=== PATIENT | male | born 1945 | race Caucasian/White ===

== ENCOUNTER 2017-08-10 22:01 | Emergency (ER) | payer OTHER ==
[~2017-08-10] VITALS: Ht 182.9 cm; Wt 89.8 kg
[~2017-08-10 22:01] MED LIST: ALBU0.08 INH; ALBUAER2 INH; AZIT-57 PO; LISI20TA3 PO; SPRIN INH
[2017-08-10 22:06] VITALS: TEMP 37.1; Ht 182.9 cm; Wt 89.8 kg
[2017-08-10] MEDS ORDERED: ADVIN50/60 INH (22:57)
[2017-08-10] MEDS ORDERED: LISI-788 PO (22:57)
[2017-08-10] MEDS ORDERED: VNTHFA/IN INH (22:57)
[2017-08-10] MEDS ORDERED: ALBINS/ INH (22:57)
[2017-08-10] MEDS ORDERED: ASPI81TA28 PO (22:57)
[2017-08-10] MEDS ORDERED: ATOR-22 PO (22:58)
[2017-08-10] MEDS ORDERED: ACET-1311 PO (23:00)
--- NOTE | 2017-08-10 23:14 | DIAGNOSTIC IMAGING REPORT ---
L KNEE 3 VIEWS CLINICAL HISTORY: 71 years-old Male presenting with left knee pain - medial/superior, climbing out of window. TECHNIQUE: Frontal, lateral, and sunrise views of the left knee were obtained. COMPARISON: None. FINDINGS: No acute fracture or malalignment. Tricompartmental degenerative changes most severe in the medial compartment, where there is medial joint space loss and subchondral sclerosis. Diffuse osteophytosis. A linear sclerotic line in the lateral tibial plateau likely relates to degenerative changes at the proximal tibiofibular articulation rather than medullary changes. No patellar subluxation. Moderate joint effusion. Atherosclerosis. IMPRESSION: Tricompartmental degenerative changes. No acute osseous injury. Electronically signed by: Anthony Doty M.D. 08/10/2017 11:13 PM Dictated Date/Time: 08/10/2017 11:11 PM
--- NOTE | 2017-08-10 23:32 | EMERGENCY ROOM VISIT NOTE ---
ED Visit Note First contact with patient: 22:28 The patient was seen and examined with Renetta David PA-C. I agree with the history, physical and findings. Please see the note for disposition and details.
--- NOTE | 2017-08-10 23:37 | EMERGENCY ROOM VISIT NOTE ---
ED Visit Note First contact with patient: 22:28 CHIEF COMPLAINT: Left knee pain HISTORY OF PRESENT ILLNESS: This 71 year old male patient presents to the emergency department approximately 10 hours after sustaining an injury to the left knee while climbing out of the basement window. He states he does not have stairs into his basement, and as he was climbing out of the window, he rolled his knee on the window frame. The patient states he immediately experienced pain , however, continued to work, unloading a furnace from a truck. He then jumped out of the back of the truck, which seemed to worsen the pain. The patient denies any other injuries besides their knee. The patient does report swelling or bruising. There is pain in the superior/medial aspect. They rate the pain as sharp and 5/10. The patient states they are able to walk on it with the help of a cane. The patient tried Tylenol, Ice, heat, Bengay, and an JUICE wrap which did help somewhat. No numbness or tingling. No previous injuries to this knee. No ankle, foot or hip pain. REVIEW OF SYSTEMS: A 6 system review of systems was completed with positives and pertinent negatives listed in the HPI. ALLERGIES: None MEDICATIONS: Spiriva, lisinopril, albuterol PMH: Hypertension, diabetes, COPD SOCIAL HISTORY: The patient lives locally with family. He denies drug, alcohol use. He admits to using chewing tobacco. PHYSICAL EXAM: Vital Signs: Reviewed Nurse's notes, vital signs stable. GENERAL : This is a 71-year-old white male, no acute distress, but appears in pain, well -developed, well-nourished. MENTAL STATUS: Alert, oriented to person place and time, and cooperative. MUSCULOSKELETAL: The left knee is moderately swollen. There is no ecchymosis. There is joint effusion present. The patient is tender just superior to the patella, worse on the medial aspect. There is no joint line tenderness. The patella does appropriately subluxate. Range of motion is full, however tender at the extremes. Strength of the quads and hamstrings is 5/ 5. Melania's is negative. Jaya's and Anterior Drawer tests are negative. There is discomfort, but no laxity with valgus stressing. No discomfort or laxity with varus stressing. The foot and toes are warm and well-perfused. Dorsalis pedis pulse 2+. Sensation to pain and light touch is intact. Capillary refill less than 2 seconds. RADIOLOGY: X-Ray Left Knee: FINDINGS: No acute fracture or malalignment. Tricompartmental degenerative changes most severe in the medial compartment, where there is medial joint space loss and subchondral sclerosis. Diffuse osteophytosis. A linear sclerotic line in the lateral tibial plateau likely relates to degenerative changes at the proximal tibiofibular articulation rather than medullary changes. No patellar subluxation. Moderate joint effusion. Atherosclerosis. IMPRESSION: Tricompartmental degenerative changes. No acute osseous injury. EMERGENCY DEPARTMENT COURSE: I examined the patient. X-rays of the left knee were reviewed by myself and read by radiology and reveal osteoarthritis, but no acute fracture. The patient was placed in an juice wrap under my direction and the position was satisfactory. The patient was instructed to use the cane he has already. The patient was seen by Dr. Gardner. He was agreeable to the assessment and plan and all questions answered to his satisfaction. I did offer to prescribe pain medication, however, the patient declines. Discharge instructions reviewed. The patient was discharged home in good condition. I attest that I have personally reviewed the patient's current medication list. Patient was found to have normal blood pressure on screening and does not require follow-up. DIFFERENTIAL DIAGNOSIS: Contusion, fracture, sprain, strain, dislocation, malignancy, and others DIAGNOSIS: Left knee contusion Problem List Medical Problems: (1) Acute URI Status: Resolved (2) Asthma Status: Chronic (3) COPD (chronic obstructive pulmonary disease) Status: Chronic (4) Hypertension Status: Chronic Current/Historical Medications Scheduled Aspirin (Aspirin Ec), 81 MG PO DAILY Atorvastatin (Lipitor), 20 MG PO DAILY Fluticasone Prop/Salmeterol (Advair Diskus 500/50 60 Dose), 1 PUFF INH BID Lisinopril/Hctz (Zestoretic 20MG/25MG), 1 TAB PO DAILY Scheduled PRN Acetaminophen (Tylenol), 650 MG PO Q4 PRN for Pain Albuterol Hfa (Ventolin Hfa), 2 PUFFS INH Q6H PRN for Shortness of Breath Albuterol Sulf (Proventil 0.083% 2.5MG/3ML), 2.5 MG INH QID PRN for Shortness of Breath Allergies Coded Allergies: No Known Allergies (Unverified , 08/10/17) Vital Signs Date Time Temp Pulse Resp B/P (MAP) Pulse Ox O2 Delivery O2 Flow Rate FiO2 08/10/17 23:39 83 16 112/67 94 Room Air 08/10/17 22:30 93 16 128/71 95 Room Air 08/10/17 22:06 37.1 91 18 142/80 94 Room Air Departure Information Impression Primary Impression: Contusion of left knee Dispostion Home / Self-Care Condition GOOD Referrals Sara Villalpando, (PCP) Patient Instructions ED Knee Pain Elda [facility] Additional Instructions You have been treated in the Emergency Department for Knee Pain. For pain control, you can use the following [id number] medicines (if >12 yo): - Regular strength (325mg/tab) Tylenol (acetaminophen) 2 tabs every 4-6 hours as needed. Do not exceed 9 tablets in a 24 hour period. Avoid taking more than 3 grams (3000 mg) of Tylenol per day. This includes any other sources of acetaminophen you may take on a regular basis. - Regular strength (200 mg/tab) Advil (ibuprofen) 1-2 tabs every 4-6 hours as needed. Do not exceed a dose of 2400 mg per day. You may take Naproxen, 1-2 tabs every 12 hours as needed for pain. Do not use this medication long-term unless directed by your PCP, as it can increase your risk for cardiac events. If this is a recent injury (<24 hrs), ice can be applied to the area of pain for the first 3 days to help decrease pain and inflammation. Ice massages can be performed by freezing water in a paper cup, peeling back the cup to expose the ice and then massaging over the affected area. Follow-up with your PCP in 2-3 days if no improvement in pain. Use the Juice wrap your provided for compression and comfort. Use the cane you have at home to help with weightbearing and ambulation. Return to the Emergency Department if your current symptoms worsen despite treatment course outlined above. Problem Qualifiers Primary Impression: Contusion of left knee Encounter type: initial encounter Qualified Codes: S80.02XA - Contusion of left knee, initial encounter
[2017-08-10 23:39] VITALS: BP 112/67; PULSE 83; O2SAT 94
== END 2017-08-10 23:55 | disposition home or self-care (01) ==
LOC: C.EDB 22:03 → C.EDA 23:55
DX: S80.02XA Contusion of left knee, initial encounter (principal); W22.8XXA Striking against or struck by other objects, initial encounter; Y92.018 Other place in single-family (private) house as the place of occurrence of the external cause; I10 Essential (primary) hypertension; E11.9 Type 2 diabetes mellitus without complications; J44.9 Chronic obstructive pulmonary disease, unspecified; Z72.0 Tobacco use; Z79.82 Long term (current) use of aspirin; Z79.899 Other long term (current) drug therapy